=== PATIENT | male | born 1995 | race Two or more races ===

== ENCOUNTER 2021-01-08 20:00 | Emergency (ER) | payer SELFPAY ==
[~2021-01-08] VITALS: Ht 177.8 cm; Wt 82.7 kg
[2021-01-08] MEDS ORDERED: [UNRECOGNIZED DRUG - CODE] MC (20:29)
--- NOTE | 2021-01-08 20:30 | PHYS DOC ---
General Adult EDM: Chief Complaint: SEXUALLY TRANSMITTED DISEASE HPI: HPI: Patient is a 25 year old male presents for evaluation of warts. Patient states new warts showed up left neck right hip and the rectal region. Patient significant other recently received HPV vaccine. Patient requesting HPV vaccine in the emergency department. Review of Systems: Review of Systems: Constitutional: Denies fever or chills. [] Eyes: Denies change in visual acuity. [] HENT: Denies nasal congestion or sore throat. [] Respiratory: Denies cough or shortness of breath. [] Cardiovascular: Denies chest pain or edema. [] GI: Denies abdominal pain, nausea, vomiting, bloody stools or diarrhea. [] : Denies dysuria. [] Musculoskeletal: Denies back pain or joint pain. [] Integument: Denies rash. [Positive warts] Neurologic: Denies headache, focal weakness or sensory changes. [] Endocrine: Denies polyuria or polydipsia. [] Lymphatic: Denies swollen glands. [] Psychiatric: Denies depression or anxiety. [] Heart Score: C/O Chest Pain: N/A Risk Factors: Risk Factors: DM, Current or recent (<one month) smoker, HTN, HLP, family history of CAD, obesity. Risk Scores: Score 0 - 3: 2.5% MACE over next 6 weeks - Discharge Home Score 4 - 6: 20.3% MACE over next 6 weeks - Admit for Clinical Observation Score 7 - 10: 72.7% MACE over next 6 weeks - Early Invasive Strategies Allergies: Allergies: Allergies Coded Allergies Type Severity Reaction Last Updated Verified No Known Drug Allergies 01/08/21 No Physical Exam: PE: General: alert, no acute distress. Skin: warm, dry and intact, no erythema, no rash. Skin lesion left neck 1 cm in length and right hip 1 cm leg HENT: bilateral external ears normal, oropharynx moist, nose normal. Head:: Normocephalic, atraumatic. Neck: Trachea midline. Eyes: EOMI, Normal conjunctiva, No drainage CARDIOVASCULAR: Regular rate and rhythm RESPIRATORY: No respiratory distress Back: Full range of motion. MUSCULOSKELETAL: Full range of motion of bilateral upper and lower extremities. GASTROINTESTINAL: Abdomen soft without rebound or guarding. NEUROLOGICAL: Alert and noted to person, place and time. No neurological deficits observed Psychiatric: Cooperative. Normal judgment EKG: EKG: [] Radiology/Procedures: Radiology/Procedures: [] Course & Med Decision Making: Course & Med Decision Making Pertinent Labs and Imaging studies reviewed. (See chart for details) [] Patient requesting HPV vaccine. Advise not available in the emergency department. Advised to follow-up with primary care physician or health department. Will be prescribed podofilox topical. Apply topically twice daily for 3 consecutive days, then discontinue for 4 consecutive days. Duration: The cycle may be repeated until there is no visible wart tissue or for a maximum of four cycles. Dragon Disclaimer: [email or web address] Disclaimer: This electronic medical record was generated, in whole or in part, using a voice recognition dictation system. Departure Departure Impression: Primary Impression: HPV (human papilloma virus) infection Additional Impression: HPV in male Disposition: 01 HOME / SELF CARE / HOMELESS Condition: STABLE Patient Instructions: HPV Scripts Podofilox (PODOFILOX) 1 Gm Powder 1 GM MC BID for 3 Days, #1 MISC Apply topically twice daily for 3 consecutive days, then discontinue for 4 consecutive days. Duration: The cycle may be repeated until there is no visible wart tissue or for a maximum of four cycles. Prov: ARCENIO BACA DO 01/08/21 ARCENIO BACA DO Jan 08, 2021 20:30
[2021-01-08 20:43] VITALS: BP 148/85
== END 2021-01-08 20:47 | disposition home or self-care (01) ==
LOC: ER 20:00
DX: A63.0 Anogenital (venereal) warts (principal)
CPT/HCPCS: 99283